=== PATIENT | female | born 1985 | race Caucasian/White ===

== ENCOUNTER 2021-12-25 08:09 | Emergency (ER) | payer BC ==
[2021-12-25] MEDS ORDERED: Acetaminophen/HYDROcodone 325-5 MG Tab PO ONE (09:30)
== END 2021-12-25 11:33 | disposition home or self-care (01) ==
LOC: JP.ED 08:09
DX: M54.41 Lumbago with sciatica, right side (principal); M54.42 Lumbago with sciatica, left side; M62.830 Muscle spasm of back; E03.9 Hypothyroidism, unspecified; Z79.899 Other long term (current) drug therapy
CPT/HCPCS: 96372; 99282; 99283; A9270; J3360